=== PATIENT | female | born 1960 | race Caucasian/White ===

== ENCOUNTER 2017-01-19 09:07 | Day surgery (SDC) | payer OTHER ==
[~2017-01-19] VITALS: Ht 167.6 cm; Wt 91.0 kg
[2017-01-19] MEDS ORDERED: LIDOCAINE 100 MG SYRINGE ONE (10:05)
[2017-01-19] MEDS ORDERED: PROPOFOL 20 ML ONE (10:05)
[2017-01-19 10:15] VITALS: BP 176/80; PULSE 57; RESP 20
[2017-01-19 10:16] VITALS: Ht 167.6 cm; Wt 91.0 kg
--- NOTE | 2017-01-19 10:56 | OPPN ---
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
[2017-01-19 11:35] VITALS: BP 160/70; RESP 20
--- NOTE | 2017-01-20 07:34 | GILP ---
DATE OF PROCEDURE: NAME OF PROCEDURES: Colonoscopy and biopsy. SURGEON: Rogelio Jara MD. PREOPERATIVE DIAGNOSES: 1. Screening colonoscopy. 2. Family history of colon cancer. POSTOPERATIVE DIAGNOSES: 1. Colonoscopy all the way to the cecum. 2. Two small sigmoid colon polyps were removed using biopsy forceps. 3. Diverticulosis of the colon. 4. Internal hemorrhoids. 5. Poor prep making the exam very suboptimal. INDICATION FOR THE PROCEDURE: Ms. Vivienne Perez is a 56-year-old female patient who was scheduled for screening colonoscopy. She had family history of colon cancer. The procedure and possible complications were well explained to the patient. The patient understood and consented to the procedure. DESCRIPTION OF PROCEDURE: Under the influence of anesthesia, the colonoscope was carefully introduc ed in the rectum and under direct vision, it was advanced all the way to the cecum. FINDINGS: The patient had poor prep making the exam suboptimal. She was noted to have 2 sigmoid co aundrea polyps and they were removed using biopsy forceps. She had diverticulosis of the colon and inte rnal hemorrhoids. She tolerated the procedure very well and there was no complication from the procedure. At the end of the procedures, she was awake with stable vital signs and she was discharged home to the care of her family. IMPRESSION: Please see postoperative diagnoses. PLAN: 1. Await histopathology report. 2. High-fiber diet. 3. Because of the poor prep and suboptimal nature of the examination, the patient will need repeat colonoscopy with better preparation in 2 years. Dictated By: ROGELIO JOHNSON/TRANG Conf#: [id number] DID#: [id number]
== END 2017-01-19 11:17 | disposition home or self-care (01) ==
LOC: GIL 09:07
PROVIDERS: ATTEND Internal Medicine Gastroenterology
DX: Z12.11 Encounter for screening for malignant neoplasm of colon (principal); D12.5 Benign neoplasm of sigmoid colon; K57.90 Diverticulosis of intestine, part unspecified, without perforation or abscess without bleeding; K64.8 Other hemorrhoids; E66.9 Obesity, unspecified; Z68.32 Body mass index [BMI] 32.0-32.9, adult
CPT/HCPCS: 45380; 88305; J2001